=== PATIENT | male | born 1995 | race Caucasian/White ===

== ENCOUNTER 2019-08-30 12:48 | Inpatient (IN) | payer BC ==
[~2019-08-30] VITALS: Ht 182.9 cm; Wt 59.0 kg
[2019-08-30] MEDS ORDERED: HydrOXYzine PAMOATE 50 MG CAPSULE PO PRN (17:45)
[2019-08-30] MEDS ORDERED: MAG HYDROX/AL HYDROX/SIMETH ES 30 ML SUSPENSION UDCUP PO PRN (17:45)
[2019-08-30] MEDS ORDERED: GuaiFENesin/D-METHORPHAN [SUGAR-FREE] 200-20MG/10 ML SYRUP UDCUP PO PRN (17:45)
[2019-08-30] MEDS ORDERED: MAGNESIUM HYDROXIDE SUSPENSION 30 ML UDCUP PO PRN (17:45)
[2019-08-30] MEDS ORDERED: TUBERCULIN, PURIFIED PROTEIN DERIVATIVE 5 TU/0.1 ML SYRINGE ID ONE (17:45)
[2019-08-30] MEDS ORDERED: ACETAMINOPHEN 325 MG TABLET PO PRN (17:45)
[2019-08-30] MEDS ORDERED: ZOLPIDEM TARTRATE 10 MG TABLET PO PRN (17:45)
[2019-08-30] MEDS ORDERED: QUEtiapine FUMARATE 100 MG TABLET PO PRN (17:45)
[2019-08-30] MEDS ORDERED: PROMETHAZINE HCL 25 MG TABLET PO PRN (17:45)
[2019-08-30] MEDS ORDERED: LORazepam 2 MG TABLET PO PRN (17:45)
[2019-08-30] MEDS ORDERED: LOPERAMIDE HCL 2 MG CAPSULE PO PRN (17:45)
[2019-08-30 19:21] VITALS: BP 147/86
[2019-08-30] MEDS: DIVALPROEX SODIUM 500 MG ER TABLET PO SCH ×2 (20:52→23:22)
[2019-08-30] MEDS: MIRTAZAPINE 15 MG TABLET PO SCH ×2 (20:52→23:22)
[2019-08-30] MEDS: GABAPENTIN 300 MG CAPSULE PO SCH ×2 (20:52→23:22)
[2019-08-31] MEDS ORDERED: INFLUENZA VIRUS VACCINE QVS 2019-20 (3YR+)/PF 60 MCG/0.5 ML SYRINGE IM ONE (02:30)
[2019-08-31 08:45] VITALS: BP 119/93
[2019-08-31] MEDS: GABAPENTIN 300 MG CAPSULE PO SCH ×4 (10:47→20:05)
[2019-08-31] MEDS: FOLIC ACID 1 MG TABLET PO SCH (10:48)
[2019-08-31] MEDS: FLUoxetine HCL 20 MG CAPSULE PO SCH (10:48)
[2019-08-31] MEDS: NALTREXONE HCL 50 MG TABLET PO SCH (10:48)
[2019-08-31] MEDS: THIAMINE HCL 100 MG TABLET PO SCH ×2 (10:48→17:42)
[2019-08-31] MEDS: MULTIVITAMINS WITH MINERALS, THERAPEUTIC TABLET PO SCH (10:48)
[2019-08-31 17:00] VITALS: BP 120/86
[2019-08-31] MEDS ORDERED: FLUO-191 PO (17:11)
[2019-08-31] MEDS ORDERED: DIVA500T52 PO (17:11)
[2019-08-31] MEDS ORDERED: NALT50TA PO (17:11)
[2019-08-31] MEDS ORDERED: GABA-531 PO (17:11)
[2019-08-31] MEDS ORDERED: MIRT15 PO (17:11)
[2019-08-31] MEDS: MIRTAZAPINE 15 MG TABLET PO SCH (20:05)
[2019-08-31] MEDS: DIVALPROEX SODIUM 500 MG ER TABLET PO SCH (20:05)
[2019-08-31] MEDS: BACITRACIN 28.4 GM OINTMENT TP SCH (20:27)
[2019-09-01 08:00] VITALS: BP 137/79
[2019-09-01] MEDS: NALTREXONE HCL 50 MG TABLET PO SCH (09:13)
[2019-09-01] MEDS: GABAPENTIN 300 MG CAPSULE PO SCH ×2 (09:13→12:24)
[2019-09-01] MEDS: BACITRACIN 28.4 GM OINTMENT TP SCH (09:14)
[2019-09-01] MEDS: THIAMINE HCL 100 MG TABLET PO SCH (09:14)
[2019-09-01] MEDS: MULTIVITAMINS WITH MINERALS, THERAPEUTIC TABLET PO SCH (09:14)
[2019-09-01] MEDS: FOLIC ACID 1 MG TABLET PO SCH (09:14)
[2019-09-01] MEDS: FLUoxetine HCL 20 MG CAPSULE PO SCH (09:14)
== END 2019-09-01 15:30 | disposition home or self-care (01) | DRG 885 ==
LOC: 3EI 14:55 → 3EC 17:30
PROVIDERS: ADMIT Psychiatry & Neurology Psychiatry; ATTEND Psychiatry & Neurology Psychiatry
PROC: 3E0234Z Introduction of Serum, Toxoid and Vaccine into Muscle, Percutaneous Approach (ICD-10-PCS; principal; 2019-08-31)
DX: F33.9 Major depressive disorder, recurrent, unspecified (principal); F10.20 Alcohol dependence, uncomplicated; G40.909 Epilepsy, unspecified, not intractable, without status epilepticus; I10 Essential (primary) hypertension; S61.512A Laceration without foreign body of left wrist, initial encounter; X58.XXXA Exposure to other specified factors, initial encounter; Y93.89 Activity, other specified; Y92.89 Other specified places as the place of occurrence of the external cause; Z23 Encounter for immunization
CPT/HCPCS: 87081; 90686